=== PATIENT | female | born 1935 | race Caucasian/White ===

== ENCOUNTER 2023-09-03 12:26 | Emergency (ER) | payer MEDICARE, OTHER, SELFPAY ==
[2023-09-03 12:26] VITALS: BP 134/63; PULSE 85; RESP 16; TEMP 36.7; O2SAT 90; BMI 18.6
--- NOTE | 2023-09-03 12:44 | RAD_ITS ---
INDICATION: Trauma, Pain EXAMINATION/TECHNIQUE: X-RAY - XR Hip Unilateral with Pelvis when performed; 2-3 Views COMPARISON: August 22, 2021 FINDINGS: PELVIC BONES: Overlapping bowel shadows obscures fine detail. There are grossly stable few bilateral inferior pubic rami fractures. There is a left superior pubic ramus fracture. Sacroiliac joints are unremarkable. No widening of the pubic symphysis. HIPS: The articular structures are unremarkable. No displaced fracture seen in this frontal view. SOFT TISSUES: There are vascular calcifications. RAD/HIP, UNI W/ Pelvis 2-3 Views IMPRESSION: Left superior pubic ramus fracture. Old bilateral inferior pubic rami fractures. Electronically Signed: Malia Gan MD at 13:58 EDT ,
--- NOTE | 2023-09-03 12:45 | EDS_ITS ---
HPI HPI - Fall History of Present Illness Chief Complaint: Fall Narrative Narrative: 87-year-old female presents with her 2 daughters status post fall onto her left hip. She states that she was getting out of the car at home, and stepped on uneven grass and fell onto her left side. She denies hitting her head or loss of consciousness. Her daughter states that she was unable to get around to the other side of the vehicle quickly enough to help her. She did tumble onto the left hip. She needed a lot of assistance getting up and standing. She complains of left groin pain with movement of her left leg. This happened within the last 45 minutes. Patient denies other injury. No neck pain or head pain. Her daughters are concerned because she has history of osteoporosis and previous fractures, as well as being on prednisone for her sarcoidosis. [facility] Medical History (Updated 09/03/23 @ 14:11 by Clifford Beltran MD) Sarcoidosis Breast cancer Osteoporosis Pulmonary fibrosis Bronchiectasis Colon cancer Home Medications ?Medication ?Instructions ?Recorded ?Last Taken ?Type aspirin 81 mg chewable tablet 81 mg PO DAILY@0800 06/21/13 1 Week Ago History ~12/27/19 omega-3s 360 dj-ovv-ymo-fish oil 1 cap PO DAILY SUPPLEMENT 06/21/13 1 Week Ago History 1,200 mg-D3 1,000 unit capsule ~12/27/19 (Fish Oil-Vit D3) Lactobacillus acidophilus 20 460 mg PO DAILY IMMUNE HEALTH 01/03/20 01/03/20 History billion cell capsule albuterol sulfate 2.5 mg/3 mL 2.5 mg inhalation Q4HWA.RT 01/03/20 01/03/20 History (0.083 %) solution for nebulization amitriptyline 50 mg tablet 50 mg PO QHS SLEEP 01/03/20 01/02/20 History hydrochlorothiazide 25 mg tablet 12.5 mg PO DAILY FLUID 01/03/20 01/03/20 H istory losartan 100 mg tablet 50 mg PO DAILY BP 01/03/20 01/03/20 History prednisone 5 mg tablet 5 mg PO DAILY 01/03/20 01/03/20 History calcium carbonate (Calcium 600) 600 mg PO DAILY 08/22/21 Unknown History furosemide 20 mg tablet 20 mg PO DAILY PRN PRN water 08/22/21 Unknown History retention metoprolol succinate 50 mg 50 mg PO DAILY 08/22/21 Unknown History tablet,extended release 24 hr flxmnwelfubg-[id number]-xywfqi tablet 1 tab PO DAILY 08/22/21 Unknown History oxycodone-acetaminophen 5 mg-325 1 tab PO Q6H PRN pain 3 days #12 08/22/21 Unknown Rx mg tablet (Percocet) tabs ciclopirox 0.77 % topical cream 1 applic topical QHS 09/03/23 Unknown History Allergy/AdvReac Type Severity Reaction Status Date / Time levofl[facility] ([facility] AdvReac MUSCLE Verified 09/03/23 12:26 ACHES Surgical History (Updated 09/03/23 @ 12:51 by Linnette Carmen) H/O mastectomy H/O right hemicolectomy Social History (Updated 09/03/23 @ 12:51 by Linnette Carmen) household members: spouse and children housing: house Smoking Status: Never smoker ROS ROS ED ROS Narrative Constitutional: No fever, no chills. HEENT: No sore throat. No neck pain. No loss of vision. No rhinorrhea. Cardiovascular: No chest pain. No palpitations. No pedal edema. Respiratory: No cough, no shortness of breath. Abdominal: No abdominal pain. No nausea. No vomiting. Genitourinary: No dysuria. No hematuria. Musculoskeletal: No myalgias. Left hip and groin pain, worse with movement. Neurologic: No headaches. No dizziness. No lightheadedness. Skin: No rash. No change in color. Psychiatric: No depression. No anxiety. EXAM Physical Exam Narrative Exam Narrative: GCS 15. ABCs intact. Regular rate and rhythm. Lungs clear to auscultation bi laterally. Abdomen soft and nontender with normal active bowel sounds. Pelvis stable. More groin pain than greater trochanteric pain of left hip. No shortening of left lower extremity. Able to flex and extend at knee and left hip. No pain with logrolling of left femur. Const Vital Signs: 09/03/23 12:26 09/03/23 13:29 Temperature 98.0 F Temperature Source Temporal Pulse Rate 85 Respiratory Rate 16 Respiratory Effort Normal Non-Labored Respiratory Depth Normal Respiratory Pattern Normal Blood Pressure 134/63 H Blood Pressure Mean 86 Pulse Ox 90 Oxygen Delivery Method Room Air Room Air MDM MDM MDM Narrative Medical decision making narrative: Concern is for left hip fracture versus pubic ramus fracture. I do not feel that she needs any imaging of the brain or neck. She was administered 1000 mg of Tylenol for analgesia and given an ice pack for comfort. X-rays were obtained of the left hip and pelvis and interpreted by myself independently. On my independent interpretation, while there is no evidence of a left femur/hip fracture, there is a superior pubic ramus fracture on the left. I reviewed the radiology report which confirms my independent interpretation, and also comments on old bilateral inferior pubic ramus fractures. I discussed the results with the patient and her 2 daughters who are both RNs. They state that they have the availability of a walker at home. They know that with the inferior pubic ramus fractures from previously, now that she has a new superior pubic ramus fracture that is weightbearing as tolerated. They were referred to orthopedics on-call and will take [id number] medications which she tolerates such as Tylenol. I feel she can be discharged safely home with follow-up. They prefer to take her home as I do not feel that she requires admission or observation for placement at this time. Disposition is discharged home in stable condition. Return instructions reviewed. History & Record Review Discussion w/independent historian: Patient and Family Radiography Diagnostic Testing: Clinical Impression(s) from Imaging Studies Hip/Pelvis X-Ray 09/03/23 12:44 IMPRESSION: Left superior pubic ramus fracture. Old bilateral inferior pubic rami fractures. Electronically Signed: Malia Gan MD at 13:58 EDT , Discharge Plan Triage Chief Complaint: Fall ED Provider: Clifford Beltran Dx/Rx/DC Orders Clinical Impression: Fracture of left superior pubic ramus, Fall Instructions: ED Pelvic Fracture, ED Fall Prevention Prescriptions: No Action aspirin 81 MG tablet,chewable 81 mg PO DAILY@0800 [id number]-[id number]-epa-fish oil-D3 [Fish Oil-Vit D3] 1 EACH capsule 1 cap PO DAILY albuterol sulfate 2.5 MG/3 ML solution for nebulization 2.5 mg INHALATION Q4HWA.RT prednisone 5 MG tablet 5 mg PO DAILY amitriptyline 50 MG tablet 50 mg PO QHS hydrochlorothiazide 25 MG tablet 12.5 mg PO DAILY losartan 100 MG tablet 50 mg PO DAILY Patient Comments: TAKE 1 TABLET BY MOUTH EVERY DAY Lactobacillus acidophilus 460 MG capsule 460 mg PO DAILY metoprolol succinate 50 mg tablet extended release 24 hr 50 mg PO DAILY Patient Comments: TAKE 1 TABLET BY MOUTH EVERY DAY calcium carbonate [Calcium 600] 600 mg calcium (1,500 mg) Tablet 600 mg PO DAILY furosemide 20 mg tablet 20 mg PO DAILY PRN PRN (Reason: water retention) Patient Comments: TAKE 1 TABLET BY MOUTH ONCE DAILY. NEEDED Centrum Silver Tablet 1 tab PO DAILY oxycodone-acetaminophen [Percocet] 5-325 mg tablet 1 tab PO Q6H PRN (Reason: pain) 3 Days Qty: 12 0RF ciclopirox 0.77 % cream 1 applic topical QHS Primary Care Provider: Aury Arauz Referrals: Aury Arauz MD [Primary Care Provider] - Hermes Ferro MD [Med Staff - Active Staff] - 1-2 Weeks Activity Restrictions/Additional Instructions: Weightbearing as tolerated on the pubic ramus fracture. Use a walker to help you ambulate. Tylenol as directed for pain. Print Language: Slovenian Disposition Disposition: Home, Self Care
[2023-09-03] MEDS: Acetaminophen 500 MG Tablet 1000 MG PO (12:51)
[2023-09-03 14:26] VITALS: BP 154/71; PULSE 92; RESP 16
== END 2023-09-03 14:34 | disposition home or self-care (01) ==
PROVIDERS: Emergency Provider Emergency Medicine; PCP Internal Medicine; Visit Provider Emergency Medicine
DX: S32.512A Fracture of superior rim of left pubis, initial encounter for closed fracture (principal); D86.9 Sarcoidosis, unspecified; V48.4XXA Person boarding or alighting a car injured in noncollision transport accident, initial encounter; Y92.009 Unspecified place in unspecified non-institutional (private) residence as the place of occurrence of the external cause; Z79.52 Long term (current) use of systemic steroids; Z79.82 Long term (current) use of aspirin; Z79.899 Other long term (current) drug therapy
CPT/HCPCS: 73502; 99282